=== PATIENT | male | born 1960 | race Caucasian/White ===

== ENCOUNTER 2023-03-31 09:26 | Outpatient (OUT) | payer OTHER, SELFPAY ==
[2023-03-31 10:10] LABS: Basophils Percent Auto 0.6 % (0.2-2.0); Eosinophils Absolute Auto 0.1 10^3/uL (0.0-0.7); Eosinophils Percent Auto 1.9 % (0.9-7.0); Hematocrit 48.6 % (42.0-54.0); Hemoglobin 16.8 g/dL (14.0-18.0); Immature Granulocytes Abs Auto 0.03 10^3/uL (0.00-0.03); Immature Granulocytes Pct Auto 0.5 % (0.0-0.5); Lymphocytes Absolute Auto 2.2 10^3/uL (1.2-3.8); Mean Corpuscular HGB Conc 34.6 g/dL (29.9-35.2); Mean Corpuscular Hemoglobin 30.5 pg (25.9-34.0); Mean Corpuscular Volume 88.2 fL (80.0-94.0); Monocytes Absolute Auto 0.5 10^3/uL (0.3-0.8); Monocytes Percent Auto 8.2 % (1.7-12.0); Neutrophils Absolute Auto 3.6 10^3/uL (1.4-6.5); Neutrophils Percent Auto 54.8 % (43.0-75.0); Platelet Count 225 10^3/uL (150-450); Red Blood Count 5.51 10^6/uL (4.70-6.10); Red Cell Distribution Width 12.6 % (11.0-15.0); White Blood Count 6.5 10^3/uL (4.0-11.0)
[2023-03-31 10:40] LABS: Estimated Average Glucose 166 mg/dL; Glycohemoglobin A1C 7.4 % (4.5-6.2)
[2023-03-31 10:43] LABS: Alanine Aminotransferase 108 U/L (16-63); Albumin Level 3.8 g/dL (3.4-5.0); Alkaline Phosphatase 89 U/L (46-116); Anion Gap 12.3; Aspartate Amino Transferase 57 U/L (15-37); BUN Creatinine Ratio 21.5; Bilirubin Total 0.5 mg/dL (0.2-1.0); Calcium 9.3 mg/dL (8.5-10.1); Carbon Dioxide 28.3 mmol/L (21.0-32.0); Chloride 103 mmol/L (98-107); Chol HDL Ratio 5.1; Cholesterol 188 mg/dL (<=200); Estimated GFR (African America >60 (>=60); Estimated GFR (Non-African Ame >60 (>=60); Globulin 3.8 g/dL; Glucose 178 mg/dL (74-106); HDL Cholesterol 37 mg/dL (40-60); Potassium 4.6 mmol/L (3.5-5.1); Sodium 139 mmol/L (136-145); Total Protein 7.6 g/dL (6.4-8.2); Triglycerides 251 mg/dL (<=150); VLDL CHOLESTEROL 50.2 mg/dL
[2023-03-31 11:04] LABS: Prostate Specific Antigen Scrn 3.05 ng/mL (<=4.00)
== END 2023-03-31 09:27 | disposition home or self-care (01) ==
LOC: LAB 09:32
PROVIDERS: PCP Nurse Practitioner Family; Visit Provider Nurse Practitioner Family
DX: Z00.00 Encounter for general adult medical examination without abnormal findings (principal)
CPT/HCPCS: 36415; 80053; 80061; 83036; 85025; G0103

== ENCOUNTER 2023-07-26 09:22 | Outpatient (OUT) | payer OTHER, SELFPAY ==
[2023-07-26 10:00] LABS: Estimated Average Glucose 143 mg/dL; Glycohemoglobin A1C 6.6 % (4.5-6.2)
== END 2023-07-26 09:23 | disposition home or self-care (01) ==
LOC: LAB 09:24
PROVIDERS: PCP Nurse Practitioner Family; Visit Provider Nurse Practitioner Family
DX: E11.69 Type 2 diabetes mellitus with other specified complication (principal)
CPT/HCPCS: 36415; 83036

== ENCOUNTER 2024-05-05 09:23 | Outpatient (OUT) | payer MEDICARE, OTHER, SELFPAY ==
[2024-05-05 10:06] LABS: Basophils Percent Auto 0.7 % (0.2-2.0); Eosinophils Absolute Auto 0.1 10^3/uL (0.0-0.7); Hemoglobin 15.9 g/dL (14.0-18.0); Immature Granulocytes Abs Auto 0.02 10^3/uL (0.00-0.03); Immature Granulocytes Pct Auto 0.3 % (0.0-0.5); Lymphocytes Percent Auto 33.3 % (20.5-60.0); Mean Corpuscular HGB Conc 34.6 g/dL (29.9-35.2); Mean Corpuscular Hemoglobin 30.8 pg (25.9-34.0); Mean Platelet Volume 10.3 fL (9.5-13.5); Monocytes Absolute Auto 0.5 10^3/uL (0.3-0.8); Monocytes Percent Auto 8.1 % (1.7-12.0); Neutrophils Absolute Auto 3.4 10^3/uL (1.4-6.5); Neutrophils Percent Auto 55.6 % (43.0-75.0); Platelet Count 199 10^3/uL (150-450); Red Blood Count 5.17 10^6/uL (4.70-6.10); Red Cell Distribution Width 12.1 % (11.0-15.0); White Blood Count 6.1 10^3/uL (4.0-11.0)
[2024-05-05 10:07] LABS: Estimated Average Glucose 189 mg/dL; Glycohemoglobin A1C 8.2 % (4.5-6.2)
[2024-05-05 10:33] LABS: Alanine Aminotransferase 130 U/L (16-63); Albumin Globulin Ratio 1.2; Albumin Level 3.9 g/dL (3.4-5.0); Alkaline Phosphatase 93 U/L (46-116); Anion Gap 14.3; Aspartate Amino Transferase 72 U/L (15-37); BUN Creatinine Ratio 15.2; Bilirubin Total 0.8 mg/dL (0.2-1.0); Calcium 9.2 mg/dL (8.5-10.1); Carbon Dioxide 27.8 mmol/L (21.0-32.0); Chloride 101 mmol/L (98-107); Chol HDL Ratio 5.4; Cholesterol 198 mg/dL (<=200); Estimated GFR (African America >60 (>=60); Estimated GFR (Non-African Ame >60 (>=60); Free T3 2.39 pg/mL (2.18-3.98); Globulin 3.2 g/dL; Glucose 214 mg/dL (74-106); HDL Cholesterol 37 mg/dL (40-60); Potassium 4.1 mmol/L (3.5-5.1); Sodium 139 mmol/L (136-145); Thyroid Stimulating Hormone 2.984 uIU/mL (0.358-3.740); Total Protein 7.1 g/dL (6.4-8.2); Triglycerides 338 mg/dL (<=150); VLDL CHOLESTEROL 67.6 mg/dL
[2024-05-05 10:36] LABS: Prostate Specific Antigen Scrn 2.53 ng/mL (<=4.00)
[2024-05-06 12:10] LABS: Insulin 20.7 uIU/mL (2.6-24.9)
== END 2024-05-05 09:24 | disposition home or self-care (01) ==
LOC: LAB 09:29
PROVIDERS: PCP Nurse Practitioner Family; Visit Provider Nurse Practitioner Family
DX: I10 Essential (primary) hypertension (principal)
CPT/HCPCS: 36415; 80053; 80061; 83036; 83525; 84436; 84443; 84481; 85025; G0103

== ENCOUNTER 2024-06-16 08:57 | Outpatient (OUT) | payer MEDICARE, OTHER, SELFPAY ==
[2024-06-16 09:59] LABS: Alanine Aminotransferase 163 U/L (16-63); Albumin Globulin Ratio 1.2; Albumin Level 3.8 g/dL (3.4-5.0); Alkaline Phosphatase 102 U/L (46-116); Anion Gap 10.2; Aspartate Amino Transferase 96 U/L (15-37); BUN Creatinine Ratio 16.2; Calcium 9.3 mg/dL (8.5-10.1); Carbon Dioxide 30.2 mmol/L (21.0-32.0); Chloride 102 mmol/L (98-107); Estimated GFR (African America >60 (>=60); Estimated GFR (Non-African Ame >60 (>=60); Globulin 3.2 g/dL; Glucose 213 mg/dL (74-106); Potassium 4.4 mmol/L (3.5-5.1); Sodium 138 mmol/L (136-145)
== END 2024-06-16 08:58 | disposition home or self-care (01) ==
PROVIDERS: PCP Nurse Practitioner Family; Visit Provider Nurse Practitioner Family
DX: R74.8 Abnormal levels of other serum enzymes (principal)
CPT/HCPCS: 36415; 80053

== ENCOUNTER 2024-06-30 08:34 | Outpatient (OUT) | payer MEDICARE, OTHER, SELFPAY ==
--- NOTE | 2024-06-30 08:38 | US_ITS ---
[facility] [place] [id number] Patient Name: TIFFANY BRENNAN MRN: [id number] date: 1960 Sex: M Assigned Patient Location: US Current Patient Location: US Accession/Order Number: [id number] Exam Date: 06/30/2024 08:45 Report Date: 06/30/2024 10:26 At the request of: CHRISTELLE MCPHERSON Procedure: US right upper quadrant EXAM: US right upper quadrant HISTORY: Elevated liver enzymes, R74.8 COMPARISON: None. TECHNIQUE: Grayscale, color and Doppler FINDINGS: The liver is normal in size, contour and echotexture. Diffuse increase in hepatic echotexture. The liver measures 19.8 cm in length. Hepatopedal flow in the main portal vein with velocity of 29 cm/s. The gallbladder is normal in size. The wall measures 1.8 mm per the common bile duct measures 2.2 mm. Negative sonographic Kapadia sign. 1 cm echogenic focus in the gallbladder neck, cholelithiasis The visualized pancreas is normal The right kidney is visualized, grossly measuring 12.5 x 6.3 x 7.3 cm. Area of anechoic echogenicity inseparable from the lower pole of the kidney measuring 13.5 x 9.1 x 10.5 cm US/US right upper quadrant IMPRESSION: Echogenic liver suggesting hepatic steatosis 13.5 cm cystic lesion extending from the lower pole of the right kidney. Consider follow-up CT exam with contrast for further evaluation Electronically authenticated by: DOROTHEA HOFF Date: 06/30/2024 10:26
== END 2024-06-30 08:35 | disposition home or self-care (01) ==
LOC: US 08:34
PROVIDERS: PCP Nurse Practitioner Family; Visit Provider Nurse Practitioner Family
DX: R74.8 Abnormal levels of other serum enzymes (principal); N28.1 Cyst of kidney, acquired
CPT/HCPCS: 76705

== ENCOUNTER 2024-07-16 08:41 | Outpatient (OUT) | payer MEDICARE, OTHER, SELFPAY ==
--- NOTE | 2024-07-16 08:44 | CT_ITS ---
[address] [address] Patient Name: TIFFANY BRENNAN MRN: [id number] date: 1960 Sex: M Assigned Patient Location: CT Current Patient Location: Accession/Order Number: [id number] Exam Date: 07/16/2024 09:50 Report Date: 07/19/2024 13:38 At the request of: CHRISTELLE MCPHERSON Procedure: CT abdomen pelvis w con EXAMINATION: CT abdomen pelvis w con HISTORY: Abnormal Findings On Diagnostic Imaging COMPARISON: 06/30/2024 ultrasound TECHNIQUE: CT images were created with IV contrast. Axial, Coronal, and Sagittal images. Dose reduction techniques were achieved by using automated exposure control and/or adjustment of mA and/or kV according to patient size and/or use of iterative reconstruction technique. FINDINGS: LUNG BASES: No visible pulmonary or pleural disease. LIVER: Diffuse hypoattenuation the liver consistent with hepatic steatosis BILIARY: Cholelithiasis without evidence of acute cholecystitis PANCREAS: No lesion, fluid collection, ductal dilatation, or atrophy. SPLEEN: No enlargement or focal lesion. ADRENALS: No mass or enlargement. KIDNEYS: Bilateral renal cortical nonenhancing hypodensities consistent with cysts the largest on the right kidney measures 12.9 cm in craniocaudal dimension with some mild peripheral hyperdensity possibly representing some elements of cortex. Calcification peripherally BOWEL/MESENTERY: No visible mass, obstruction, or bowel wall thickening. Normal appendix AORTA/VASCULAR: no aortic aneurysm. Mild calcific atherosclerosis RETROPERITONEUM: No mass or adenopathy. LYMPH NODES: No adenopathy. URINARY BLADDER: No visible focal wall thickening, lesion, or calculus. PELVIC ORGANS: Enlarged prostate measuring 6 cm in diameter ABDOMINAL WALL: No mass or hernia. BONES: No bony lesion or fracture. Curvature of the thoracolumbar spine with moderate spondylosis L5-S1 OTHER: Negative. CT/CT abdomen pelvis w con IMPRESSION: Bilateral renal cortical cysts the largest in the right measuring 12.9 cm with peripheral calcification Enlarged prostate gland Electronically authenticated by: DOROTHEA HOFF Date: 07/19/2024 13:38
== END 2024-07-16 08:42 | disposition home or self-care (01) ==
LOC: CT 08:41
PROVIDERS: PCP Nurse Practitioner Family; Visit Provider Nurse Practitioner Family
DX: R93.89 Abnormal findings on diagnostic imaging of other specified body structures (principal); N28.1 Cyst of kidney, acquired
CPT/HCPCS: 74177; Q9967

== ENCOUNTER 2024-08-19 08:25 | Outpatient (OUT) | payer MEDICARE, OTHER, SELFPAY ==
--- OUTSIDE RECORDS SUMMARY | 2024-08-19 08:31 | XMS_ITS | CCD ---
Author Organization [facility] CARE INFORMATION ASSOCIATE [facility] Care Team Providers Care Heart Nurse Name Role Phone Josh MILLER Attending Unavailable CHRISTELLE MCPHERSON Referring Unavailable Encounters Encounter Date Encounter Type Care Provider Facility Start: 09-17-2024 ambulatory Josh MILLER Facili ty:[facility] Start: 07-27-2024 ambulatory Josh MILLER Facility :[facility] Payers Date Payer Category Payer Medicare [id number] 2023 Unknown [id number] 1960 Unknown [id number] Summary Purpose Family History No Family History Records Found Advance Directives No Advanced Directives Records Found Additional Source Comments (unrecognized sect ion and content) No Status Records Found INFORMATION SOURCE (unrecogn ized section and content) DATE CREATED AUTHOR 08/13/2024 [facility] FOR RECORDS PERTAINING TO PATIENTS WHO ARE OR HAVE BEEN ENROLLED IN A CHEMICAL DEPENDENCY/SUBSTANCEABUSE PROGRAM, SOME INFORMATION MAY BE OMITTED. This clinical summary was aggregated from multiple sources. Caution should be exercised in using it in the provision of clinical care. This summary normalizes information from multiple sources, and as a consequence, information in this document may materially change the coding, format and clinical context of patient data. In addition, data may be omitted in some cases. CLINICAL DECISIONS SHOULD BE BASED ON THE PRIMARY CLINICAL RECORDS. [employer] provides no warranty or guarantee of the accuracy or completeness of information in this document.
[2024-08-20 07:12] LABS: HBsAg Screen Negative (Negative); HCV Ab Non Reactive (Non Reactive); Hep A Ab, IgM Negative (Negative); Hep B Core Ab, IgM Negative (Negative)
== END 2024-08-19 08:26 | disposition home or self-care (01) ==
LOC: LAB 08:27
PROVIDERS: PCP Nurse Practitioner Family; Visit Provider Nurse Practitioner Family
DX: R74.8 Abnormal levels of other serum enzymes (principal)
CPT/HCPCS: 36415; 80074

== ENCOUNTER 2025-05-17 08:18 | Outpatient (OUT) | payer MEDICARE, OTHER, SELFPAY ==
--- OUTSIDE RECORDS SUMMARY | 2025-04-06 11:24 | XMS_ITS ---
Author Organization The [facility] in [place] Address [address] [place] [address] Care Team Providers Care District Ranger Name Role Phone Marcela Wilkins Primary Care Provider REASON FOR VISIT Yearly Appt -LMTCB Encounters Encounter Location Date Provider Diagnosis [facility] [address] [facility] [place] [address] 04/06/2025 Marcela Wilkins Plan Of Treatment No Information Progress Notes * John BRENNAN LDOB:[birth year] (65 yo M)Acc No.[id number]:04/06/2025 Patient: John SHARMA Fabio :1960 A ge:65 Y S ex:Male Address:[facility] [address], [place] [address] * true * Date: Generated for Printi ng/Faxing/eTransmitting on: 0 05/17/2025 08:43 AM EDT
--- OUTSIDE RECORDS SUMMARY | 2025-04-12 06:00 | XMS_ITS ---
Author Organization [facility] in [place] Address [address] [place] [address] Care Team Providers Care Spindle Repairer Name Role Phone Franky Marcela Primary Care Provider Allergies No Known Allergies REASON FOR VISIT yearly wellness, patient has a sore/rash left inner ankle area Medications Medication SIG (Take, Route, Fr equency, Duration) Notes Start Date End Date Status Lisinopril 10 MG 1 tablet Orally Once a day for 90 days Active Mupirocin 2 % 1 application Trigonometry Teacher ally Twice a day for 5 days 04/12/2025 Active Aspir-Low 81 MG 1 tablet Orally Once a day Active Social History Tobacco Use: Social History Observation Description Date Details (start date - stop date) Never Smoker NA - NA Tobacco Use/Smoking Question Answer Notes Patient is a nonsmoker AUDIT-C (Standard) Question Answer Notes Did you have a drink containing alcohol in the p ast year? No Points 0 Interpretation Negative Vital Signs Weight 247 lbs 04/12/2025 Height 71 in 04/12/2025 Blood pressure systolic 140 mm Hg 04/12/20 25 Blood pressure diastolic 80 mm Hg 025 BMI 34.45 kg/m2 04/12/2025 Encounters Encounter Location Date Provider Diagnosis [facility] [address] [place] [address] 04/12/2025 Marcela Wilkins Skin lesion L98.9 an d Essential (primary) hypertension I10 Assessments Encounter Date Diagnosis (ICD Code) Assessment Notes Treatment Notes Treatment Clinical Notes Section Notes 04/12/2025 Skin lesion (ICD-10 - L98.9) close monitoring if not improving, fu 04/12/2025 Essential (primary) hypertension (ICD-10 - I10) cologuard ordered BP ok continue med Plan Of Treatment Medication Medication Name Sig Start Date Stop Date Notes Lisinopril 10 MG 1 tablet Orally Once a day for 90 days Mupirocin 2 % 1 application Trigonometry Teacher ally Twice a day for 5 days 04/12/2025 Treatment Notes Assessment Notes Skin lesion close monitoring if not improving, fu Essential (primary) hypertension cologuard ordered BP ok continue med Pending Test Test Name Order Date HEMOGLOBIN A1C (GLYCO) 04/12/2025 INSULIN, TOTAL 04/12/2025 LIPID PANEL (CHOL/TRIG/HDL/LDL) 04/12/20 25 URIC ACID 04/12/2025 THYROID PANEL (T4/TSH/FREE T3) PSA, SCREENING 04/12/2025 CMP (COMP MET FARRIS) w/eGFR CKD-EPI 2024 CBC WITH DIFF 04/12/2025 Next Appt Details Follow Up: 1 Year,prn, Reaso n: Progress Notes * John BRENNAN LDOB:[birth year] (65 yo M)Acc No.[id number]:04/12/2025 Progress Note Patient: John SHARMA Provider: Tracy Wilkins ([facility]), HIGHWAY TRAFFIC CONTROL TECHNICIAN :1960 A ge:65 Y S ex:Male Date:04/12/2025 Address:[facility] [address], [facility] Check In:09:46 AM ESTCheck O ut:10:16 AM EST Subjective: * Chief Complaints: * 1 . Yearly wellness. 2. Patient has a sore/rash left inner ankle area. * HPI: G eneral: see kidney dr? 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 D epression Screening: PHQ-2 (2015 Edition) L ittle interest or pleasure in doing things??Not at all F eeling down, depressed, or hopeless? N ot at all T otal Score 0 * ROS: G eneral/Constitutional: Fever d enies. H eadache d enies. W eight loss?denies. O phthalmologic: Discharge d enies. E ye Pain d enies. I tching and redness d enies. E NT: Nasal discharge d enies. N agata congestion d enies.?Sore throat d enies. C ardiovascular: Chest tightness/ heavy pressure d enies. R apid heart rate d enies. S welling of extremities d enies. C hest pain d enies. ? R espiratory: Productive cough d enies. C hest pain d enies. C ough d enies. S hortness of breath d enies. W heezing d enies. ? G astrointestinal: Abdominal pain d enies. C onstipation d enies. D ecreased appetite d enies. D iarrhea d enies. N ausea d enies. V omiting?denies. G enitourinary: Urinary incontinence d enies. P ainful urination d enies. M usculoskeletal: Back pain d enies. N priyanka pain d enies. M uscle aches d enies. S kin: Rash d enies. S kin lesion(s) l eft inner ankle, not itchy. * Active Problem List F41.9 Anxiety disorder, un specified Modified On:03/26/2023U Status:confirmed I10 Essential (primary) hypertension Modified On:10/14/2023/U Status:confirmed E11.69 Type 2 diabetes ying itus with other specified complication Modified On:07/08/2023U Status:confirmed E66.9 Obesity, unspecified Modified On:04/04/2023U Status:confirmed J32.9 Sinusitis Modified On:04/12/2024/U Status:confirmed R74.8 Elevated liver enzym es Modified On:05/10/2024U Status:confirmed R93.89 Abnormal findings on diagnostic imaging of other specified body structures Modified On:07/05/2024U Status:confirmed K76.0 Fatty liver Modified On:07/20/2024/U Status:confirmed N28.1 Renal cyst Modified On:07/20/2024/U Status:confirmed N40.0 Enlarged prostate Modified On:07/20/2024/U Status:confirmed * Medical History: M edical History Verified. * Surgical History: C ABG . * Family History: F ather: 71 yrs, substance abuse, heart attack, diagnosed with Unspecified heart disease, Unspecified essential hypertension. M other: 80 yrs, Alzheimers, diagnosed with Unspecified essential hypertension. B rother(s): , colorectal cancer, diagnosed with Other malignant neoplasm of unspecified site. S jeremiah(s): , brain cancer, diagnosed with Other malignant neoplasm of unspecified site. 1 brother(s) , 2 sister(s) . . * Social History: T obacco Use: T obacco Use/Smoking P atient is a n onsmoker D rug/Alcohol: A RHYS-C (Standard) D id you have a drink containing alcohol in the past year? N o P oints 0 I nterpretation N egative * Medications: T aking Aspir-Low 81 MG Tablet Delayed Release 1 tablet Orally Once a day , Taking Lisinopril 10 MG Tablet 1 tablet Orally Once a day , Medication List reviewed and reconciled with the patient * Allergies: N .K.D.A. Objective: * Vitals: W t:247lbs, Ht: 71 in, BP:140/80mm Hg, BMI:34.45Index, Ht-cm: 180.34 cm, Wt-k.04 kg. * Examination: G eneral Examinations: GENERAL APPEARANCE: a lert and oriented, i n no acute distress. EYES: c onjunctiva normal, sclera non-icteric. EARS: e xternal auditory canals are patent. Tympanic membranes are pearly gipson and mobile. NOSE: n ormal external appearance. LUNGS: c lear anteriorly and posteriorly. CARDIO: r egular rate and rhythm, S1, S2 normal, no edema.? ABDOMEN: s oft, nontender. MUSCULOSKELETAL: G ait and station normal. SKIN: w arm and dry. Assessment: * Assessment: 1. E ssential (primary) hypertension - I10 (Primary) 2 . S kin lesion - L98.9 Plan: * Treatment: 2. S kin lesion Start Mupirocin Ointment, 2 %, 1 application, Externally, Twice a day, 5 days, 1, Refills 0. ? Notes: close monitoring if not improving, fu * Preventive Medicine: Screenings/Counseling: F ALL RISK SCREENING Fall Risk Assessment: N o falls in the past year * Follow Up: 1 Year,prn * * Electronically signed by Sophie Wilkins , GIS ANALYST, ORDER PICKER/ASSEMBLER.HIGHWAY TRAFFIC CONTROL [id number] on 04/13/2025 at 10:44 AM EDT Sign off status: Completed Visit Status: C HK (Check Out) true * Provider: Tracy Wilkins ([facility]), HIGHWAY TRAFFIC CONTROL TECHNICIAN Date: 0 04/12/2025 Generated for Jeffy hall/Jaiden/eTmirlandeitting on: 0 05/17/2025 08:42 AM EDT History and Physical Notes * HPI (History of Present Illness) Category Sub-Category Detail Notes Category Not es General see kidney dr? 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 Tympanic membranes are pearly gipson and mobile NOSE: normal external appe arance THROAT: CARDIO: regular rate and rhy thm, S1, S2 normal, no edema LUNGS: clear anteriorly and posteriorly ABDOMEN: soft, nontender SKIN: warm and dry BACK: MUSCULOSKELETAL: Gait and station nor mal LYMPH NODES:
--- OUTSIDE RECORDS SUMMARY | 2025-05-02 05:13 | XMS_ITS ---
Author Organization The [facility] in [place] Address [address] [place] [address] Care Team Providers Care Food Service Coordinator Name Role Phone Marcela Wilkins Primary Care Provider [phone] REASON FOR VISIT Cologuard Encounters Encounter Location Date Provider Diagnosis [facility] [address] [place] [address] 05/02/2025 Marcela Wilkins Plan Of Treatment No Information Progress Notes * John BRENNAN LDOB:[birth year] (65 yo M)Acc No.[id number]:05/02/2025 Patient: John SHARMA Fabio :1960 A ge:65 Y S ex:Male Address:[facility] [address], [place] [address] * true * Date: Generated for Printi ng/Faxing/eTransmitting on: 0 05/17/2025 08:43 AM EDT
--- OUTSIDE RECORDS SUMMARY | 2025-05-17 08:30 | XMS_ITS | CCD ---
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 Helper Name Role Phone Josh MILLER Attending Unavailable MARCELA WILKINS Referring Unavailable Josh MILLER Attending Unavailable MARCELA WILKINS Primary Care Physician Allergies Allergy Classification Reported Allergen(s) Allergy Type Date of Onset Reaction(s) Facility (1 source) No Known Medication Allergies; Translations: [No Known Medication Allergies] Propensity to adverse reactions (disorder) [facility] Repository Medications Current Medications Medication Drug Class(es) Dates Sig (Normalized) Sig (Original) aspirin 81 mg delayed release oral tablet (1 source) Platelet Aggregation Inhibitor, Nonsteroidal Anti-inflammatory Drug Start: 09-17-2024 take 1 tablet by mouth once daily aspirin 81 mg Oral EC Tab 81 mg = 1 tab(s), Oral, Daily, Refills(s) 0 Start Date: 09/17/24 Status: Ordered lisinopril 10 mg oral tablet (1 source) Angiotensin Converting Enzyme Inhibitor Start: 09-17-2024 lisinopril 10 mg Tab 10 mg = 1 tab(s), Refills(s) 0 Start Date: 09/17/24 Status: Ordered Problems Problem Classification Problem Date Documented Da te Episodic/Chronic Anxiety disorders (1 source) Anxiety 09-15-2024 Chronic Diabetes mellitus without complication (1 source) Type 2 diabetes mellitus 09-15-2024 Chronic Essential hypertension (1 source) Essential hypertension 09-15-2024 Chronic Other diseases of kidney and ureters (1 source) Acquired renal cyst without neoplastic change; Translations: [Cyst of kidney, acquired] Onset: 09-17-2024 Episodic Other diseases of kidney and ureters (1 source) Cyst of kidney 09-17-2024 Episodic Other nutritional; endocrine; and metabolic disorders (1 source) Obesity 09-15-2024 Chronic Other screening for suspected conditions (not mental disorders or infectious disease) (1 source) Encounter for screening for malignant neoplasm of prostate; Translations: [Screening for malignant neoplasm done] Onset: 09-17-2024 Episodic Other upper respiratory infections (1 source) Sinusitis 09-15-2024 Chronic Unclassified (1 source) Patient encounter status 09-17-2024 Results Test Name Value Interpretation Reference Range Jose J ugalde Ambulatory Visit Summaryon 1 11-18-2023 Ambulatory Visit Summary Ambulatory Visit Summary TIFFANY BRENNAN :1960 Visit Date:09/17/2024 Ambulatory Visit Instructions Your Diagnosis Renal cyst Screening PSA (prostate specific antigen) Tests Performed CT Abdomen/Pelvis w/ + w/o Contrast -- Results Pending -- Please visit your patient portal for your results or contact your primary care physician. Your Care Team Attending Physician - Josh MILLER MD Primary Care Physician - MARCELA WILKINS CNP Referring Physician - MARCELA WILKINS CNP This Is Your Medications List Contact prescribing physician if questions or concerns aspirin (aspirin 81 mg Oral EC Tab) lisinopril (lisinopril 10 mg Tab) Procedures Performed CABG - Coronary artery bypass graft. Discharge Vitals Temperature (Temporal Artery) 37 ???C Heart Rate (Peripheral) 88 Respiratory Rate 16 Blood Pressure 136/87 Height 180 cm Height 71 in Weight 114.5 kg Weight 252.429 lb BMI 35.34 What to do next You Need to Schedule the Following Appointments Follow Up with ANGELA PULIDO, Josh James, URL When: Where: [address] [place] [address]- Medications What How Much When Instructions Unchanged aspirin (aspirin 81 mg Oral EC Tab) 1 Tablets By Mouth Every day Contact prescribing physician if questions or concerns Unchanged lisinopril (lisinopril 10 mg Tab) 1 Tablets Contact prescribing physician if questions or concerns Allergies No Known Medication Allergies Problems Ongoing - Any problem that you are currently receiving treatment for. Anxiety Essential hypertension Obesity Renal cyst Screening PSA (prostate specific antigen) Sinusitis Type 2 diabetes mellitus with other specified complication Patient Survey You may receive a survey via text or e-mail asking about your office visit. Please share your experience with us by completing your survey. We appreciate your feedback and thank you for choosing us for your care. Education Materials Prostate Cancer Screening Prostate cancer screening is testing that is done to check for the presence of prostate cancer in men. The prostate gland is a walnut-sized gland that is located below the bladder and in front of the rectum in males. The function of the prostate is to add fluid to semen during ejaculation. Prostate cancer is one of the most common types of cancer in men. Who should have prostate cancer screening? Screening recommendations vary based on age and other risk factors, as well as between the professional organizations who make the recommendations. In general, screening is recommended if: ??? You are age 50 to 70 and have an average risk for prostate cancer. You should talk with your health care provider about your need for screening and how often screening should be done. Because most prostate cancers are slow growing and will not cause , screening in this age group is generally reserved for men who have a 10- to 15-year life expectancy. ??? You are younger than age 50, and you have these risk factors: ? Having a father, brother, or uncle who has been diagnosed with prostate cancer. The risk is higher if your family member's cancer occurred at an early age or if you have multiple family members with prostate cancer at an early age. ? Being a male who is Black or is of Br[place] or sub-Saharan descent. In general, screening is not recommended if: ??? You are younger than age 40. ??? You are between the ages of 40 and 49 and you have no risk factors. ??? You are 70 years of age or older. At this age, the risks that screening can cause are greater than the benefits that it may provide. If you are at high risk for prostate cancer, your health care provider may recommend that you have screenings more often or that you start screening at a younger age. How is screening for prostate cancer done? The recommended prostate cancer screening test is a blood test called the prostate-specific antigen (PSA) test. PSA is a protein that is made in the prostate. As you age, your prostate naturally produces more PSA. Abnormally high PSA levels may be caused by: ??? Prostate cancer. ??? An enlarged prostate that is not caused by cancer (benign prostatic hyperplasia, or BPH). This condition is very common in older men. ??? A prostate gland infection (prostatitis) or urinary tract infection. ??? Certain medicines such as male hormones (like testosterone) or other medicines that raise testosterone levels. A rectal exam may be done as part of prostate cancer screening to help provide information about the size of your prostate gland. When a rectal exam is performed, it should be done after the PSA level is drawn to avoid any effect on the results. Depending on the PSA results, you may need more tests, such as: ??? A physical exam to check the size of your prostate gland, if not done as part of screening. ??? (more content not included)... [facility] Reminderson 09-17-2024 Reminders Reminders From: Flakita Tim To: JOAN Miller; Sent: 09/17/2024 11:16:29 EST Show up: 04/29/2025 11:16:00 EDT Subject: Ct scan/PSA Due Date/Time: 05/23/2025 11:16:00 EDT Reminder/Recall Patient needs sched for Ct scan ABD/Pelvis w and w/o contrast, creatinine prior and PSA level prior to 07/01/25 appt [facility] Vital Signs Date Time Vital Sign Value Performing Clinician Faci littanner 09-17-2024 09:52-0500 Blood Pressure Location Josh MILLER [facility] 09-17-2024 09:52-0500 Body temperature 98.6 [degF] Josh MILLER [facility] 09-17-2024 09:52-0500 Diastolic blood pressure 87 mm[Hg] Josh MILLER [facility] 09-17-2024 09:52-0500 Heart rate 88 /min Josh MILLER [facility] 09-17-2024 09:52-0500 Respiratory rate 16 /min Josh MILLER [facility] 09-17-2024 09:52-0500 Systolic blood pressure 136 mm[Hg] Josh MILLER [facility] Encounters Encounter Date Encounter Type Care Provider Facility Start: 07-01-2025 ambulatory Josh MILLER Facili ty:[facility] Start: 09-17-2024 End: 09-17-2024 ambulatory MARCELA WILKINS Facility:[facility] Start: 09-17-2024 End: 09-17-2024 Patient encounter procedure Josh James ANGELA [facility] Start: 07-27-2024 ambulatory Josh MILLER Facility : [place] Procedures Date Procedure Procedure Detail Performing Clinician Coronary artery bypass graft Josh ANGELA Payers Date Payer Category Payer Medicare [id number] 2023 Unknown [id number] 1960 Unknown [id number] 1960 Unknown [id number] Social History Date Type Detail Facility Start: 09-17-2024 Tobacco smoking status Never s moked tobacco (finding) [facility] Tobacco smoking status Never [facility] Sex Assigned At Male [facility] Functional Status Date Assessment Result Facility 09-17-2024 Functional Status N/A [facility] Hospital Discharge instructions 09-17-2024 Note Date & Type Note Facility 09-17-2024 Hospital Discharge instructions Patient Education 09/17/2024 11:06:22 Prostate Cancer Screening Prostate Cancer Screening Prostate cancer screening is testing that is done to check for the presence of prostate cancer in men. The prostate gland is a walnut-sized gland that is located below the bladder and in front of the rectum in males. The function of the prostate is to add fluid to semen during ejaculation. Prostate cancer is one of the most common types of cancer in men. Who should have prostate cancer screening? Screening recommendations vary based on age and other risk factors, as well as between the professional organizations who make the recommendations. In general, screening is recommended if: You are age 50 to 70 and have an average risk for prostate cancer. You should talk with your health care provider about your need for screening and how often screening should be done. Because most prostate cancers are slow growing and will not cause , screening in this age group is generally reserved for men who have a 10- to 15-year life expectancy. You are younger than age 50, and you have these risk factors: ?Having a father, brother, or uncle who has been diagnosed with prostate cancer. The risk is higher if your family member's cancer occurred at an early age or if you have multiple family members with prostate cancer at an early age. ?Being a male who is Black or is of Brant or sub-Saharan descent. In general, screening is not recommended if: You are younger than age 40. You are between the ages of 40 and 49 and you have no risk factors. You are 70 years of age or older. At this age, the risks that screening can cause are greater than the benefits that it may provide. If you are at high risk for prostate cancer, your health care provider may recommend that you have screenings more often or that you start screening at a younger age. How is screening for prostate cancer done? The recommended prostate cancer screening test is a blood test called the prostate-specific antigen (PSA) test. PSA is a protein that is made in the prostate. As you age, your prostate naturally produces more PSA. Abnormally high PSA levels may be caused by: Prostate cancer. An enlarged prostate that is not caused by cancer (benign prostatic hyperplasia, or BPH). This condition is very common in older men. A prostate gland infection (prostatitis) or urinary tract infection. Certain medicines such as male hormones (like testosterone) or other medicines that raise testosterone levels. A rectal exam may be done as part of prostate cancer screening to help provide information about the size of your prostate gland. When a rectal exam is performed, it should be done after the PSA level is drawn to avoid any effect on the results. Depending on the PSA results, you may need more tests, such as: A physical exam to check the size of your prostate gland, if not done as part of screening. Blood and imaging tests. A procedure to remove tissue samples from your prostate gland for testing (biopsy). This is the only way to know for certain if you have prostate cancer. What are the benefits of prostate cancer screening? Screening can help to identify cancer at an early stage, before symptoms start and when the cancer can be treated more easily. There is a small chance that screening may lower your risk of dying from prostate cancer. The chance is small because prostate cancer is a slow-growing cancer, and most men with prostate cancer from a different cause. What are the risks of prostate cancer screening? The main risk of prostate cancer screening is diagnosing and treating prostate cancer that would never have caused any symptoms or problems. This is called overdiagnosisand overtreatment. PSA screening cannot tell you if your PSA is high due to cancer or a different cause. A prostate biopsy is the only procedure to diagnose prostate cancer. Even the results of a biopsy may not tell you if your cancer needs to be treated. Slow-growing prostate cancer may not need any treatment other than monitoring, so diagnosing and treating it may cause unnecessary stress or other side effects. Questions to ask your health care provider When should I start prostate cancer screening? What is my risk for prostate cancer? How often do I need screening? What type of screening tests do I need? How do I get my test results? What do my results mean? Do I need treatment? Where to find more information The [place] [employer]: www.cancer.org [place] [employer]: www.auanet.org Contact a health care provider if: You have difficulty urinating. You have pain when you urinate or ejaculate. You have blood in your urine or semen. You have pain in your back or in the area of your prostate. Summary Prostate cancer is a common type of cancer in men. The prostate gland is located below the bladder and in front of the rectum. This gland adds fluid to semen during ejaculation. Prostate cancer screening may identify cancer at an early stage, when the cancer can be treated more easily and is less likely to have spread to other areas of the body. The prostate-specific antigen (PSA) test is the recommended screening test for prostate cancer, but it has associated risks. Discuss the risks and benefits of prostate cancer screening with your health care provider. If you are age 70 or older, the risks that screening can cause are greater than the benefits that it may provide. This information is not intended to replace advice given to you by your health care provider. Make sure you discuss any questions you have with your health care provider. Document Revised: 03/11/2022 Document Reviewed: 03/11/2022 [employer] Patient Education 2023 [employer]. Follow Up Care 08/11/2024 11:43:46 With:ANGELA PULIDO, Josh James, URL Address: [address] [place] [id number]- When: Unknown [facility] Clinical Note 09-17-2024 Note Date & Type Note Facility 09-17-2024 Note Urology Office/Clini c Note Chief Complaint referral for renal cyst HPI Staff New pt referred by Marcela Wilkins CNP for renal cyst. Never seen in our office before (verified on [employer]). RUQ US 06/30/24 [facility] - 13.5 cm cystic lesion extending from the RLP of kidney. CT AP w con 07/16/24 [facility] - Bilateral renal cortical cysts the largest in the right measuring 12.9 cm with peripheral calcification. CMP 05/05/24 - BUN 16, CR 1.05, GFR >60 Dysuria: denies Incomplete bladder emptying: denies Hematuria: denies Frequency: denies Urgency: denies Nocturia: 1x Stream: no straining or intermittency, denies weak stream Leaking: denies Post void dripping: denies Wearing pads/ Depends: denies Urge incontinence: denies Stress incontinence: denies Incontinence without Sensory Awareness: denies Abdominal pain: denies Flank pain: denies Sexual complaints: denies History of Present Illness Tests reviewed: reviewed UA, US, CT, PSA, external records. I have reviewed the previous health record information and history for this patient from external provider I have reviewed and verified the staff HPI to be accurate for this encounter. There have been no associated fever, chills, flank pain, or blood in the urine. Denies any urinary infections since last encounter. Review of Systems PHQ Score Initial Depression Screen Score: 0 SCORE ROS - Provider Constitutional: denies weight loss, denies hot flashes. Eyes: denies eye problems. Gastrointestinal: denies nausea, denies vomiting. Cardiovascular: denies chest pain or angina. Integumentary: no dryness Musculoskeletal: denies musculoskeletal symptoms. ENMT: denies otolaryngeal symptoms. Respiratory: no shortness of breath. Heme/Lymph: denies easy bleeding tendency, denies easy bruising tendency. Psychiatric: no confusion, no anxiety. Genitourinary: See HPI. Physical Exam Vitals & Measurements T: 37 ???C(Temporal Artery) HR: 88(Peripheral) RR: 16 BP: 136/87 HT: 71 in HT: 180 cm WT: 114.5 kg WT: 252.429 lb BMI: 35.34 General Appearance: alert, no distress, well nourished, well developed male. Head: normocephalic . Eyes: normal orbit and globe. ENMT: normal examination of external ears. Psychiatric: cooperative, affect appropriate for age, normal judgement, euthymic mood. Assessment/Plan 64 yo male referred by Marcela Wilkins CNP for renal cyst. Pt accompanied by today. Portions of this record may have been created with voice recognition artificial intelligence software, specifically [employer], [employer] and or [employer]. Substitutions may have occurred due to the inherent limitations of voice recognition and artificial intelligence software. 1. Renal cyst (N28.1: Cyst of kidney, acquired) CMP 05/05/24 - Cr 1.05, eGFR >60 Right upper quadrant US 06/30/24 [facility] - 13.5 cm cystic lesion extending from the RLP of kidney. CT AP w con 07/19/24 [facility] - bilateral renal cortical nonenhancing hypodensities consistent with cysts, the largest on the right measures 12.9 cm in craniocaudal dimension with some mild peripheral hyperdensity possibly representing some elements of cortex. Calcification peripherally. Pt reports he had imaging done to elevated liver enzymes. Asymptomatic. Explained to pt the definition of a cyst. Discussed with pt how cysts can turn into cancer. Explained to pt that his cysts are not simple and they are mildly complex due to calcifications. Size of cyst is quite large and could start to push on other organs if it would continue to grow. If pt would become symptomatic of the cyst, we could consider needle aspiration. Continued surveillance is warranted. -CT AP w/wo con in 10 mos -Monitor for flank pain 2. Screening PSA (prostate specific antigen) (Z12.5: Encounter for screening for malignant neoplasm of prostate) PSA 05/05/24 - 2.53 Explained to pt that his PSA is on the higher end of normal for his age. Recommend repeating this. Only PSA found on [facility]. CT AP w con 07/19/24 [facility] - Enlarged prostate measuring 6 cm in diameter. UA today negative for infection or blood. IPSS 1. Not taking any BPH meds. -PSA in 10 mos Follow-up With When Contact Information ANGELA PULIDO, Josh James, URL [address] [id number] Additional Instructions: 10 mos w/ CT & PSA Patient Education Prostate Cancer Screening I, Zora North, personally scribed for Dr. Miller on 09/17/2024 11:10:34. . Documentation recorded by the scribeZora, accurately reflects the services(s) I performed and decisions made by me. Authenticated by Dr. Miller on 09/17/2024 11:13:18. Problem List/Past Medical History Ongoing Anxiety Essential hypertension Obesity Renal cyst Screening PSA (prostate specific antigen) Sinusitis Type 2 diabetes mellitus with other specified complication Historical No qualifying data (more content not included)... [facility] Comment on above: Result Comment: Elec tronically Signed By: Josh MILLER MD\.br\Date and Time Signed: 09/17/24 11:13 EST\.br\Electronically Co-Signed By: Zora North\.br\Date and Time Co-Signed: 09/17/24 11:10 EST Clinical Note 09-17-2024 Note Date & Type Note Facility 09-17-2024 Note Patient Education Oncology Prostate Cancer Screening Prostate cancer screening is testing that is done to check for the presence of prostate cancer in men. The prostate gland is a walnut-sized gland that is located below the bladder and in front of the rectum in males. The function of the prostate is to add fluid to semen during ejaculation. Prostate cancer is one of the most common types of cancer in men. Who should have prostate cancer screening? Screening recommendations vary based on age and other risk factors, as well as between the professional organizations who make the recommendations. In general, screening is recommended if: ??? You are age 50 to 70 and have an average risk for prostate cancer. You should talk with your health care provider about your need for screening and how often screening should be done. Because most prostate cancers are slow growing and will not cause , screening in this age group is generally reserved for men who have a 10- to 15-year life expectancy. ??? You are younger than age 50, and you have these risk factors: ? Having a father, brother, or uncle who has been diagnosed with prostate cancer. The risk is higher if your family member's cancer occurred at an early age or if you have multiple family members with prostate cancer at an early age. ? Being a male who is Black or is of Brant or sub-Saharan descent. In general, screening is not recommended if: ??? You are younger than age 40. ??? You are between the ages of 40 and 49 and you have no risk factors. ??? You are 70 years of age or older. At this age, the risks that screening can cause are greater than the benefits that it may provide. If you are at high risk for prostate cancer, your health care provider may recommend that you have screenings more often or that you start screening at a younger age. How is screening for prostate cancer done? The recommended prostate cancer screening test is a blood test called the prostate-specific antigen (PSA) test. PSA is a protein that is made in the prostate. As you age, your prostate naturally produces more PSA. Abnormally high PSA levels may be caused by: ??? Prostate cancer. ??? An enlarged prostate that is not caused by cancer (benign prostatic hyperplasia, or BPH). This condition is very common in older men. ??? A prostate gland infection (prostatitis) or urinary tract infection. ??? Certain medicines such as male hormones (like testosterone) or other medicines that raise testosterone levels. A rectal exam may be done as part of prostate cancer screening to help provide information about the size of your prostate gland. When a rectal exam is performed, it should be done after the PSA level is drawn to avoid any effect on the results. Depending on the PSA results, you may need more tests, such as: ??? A physical exam to check the size of your prostate gland, if not done as part of screening. ??? Blood and imaging tests. ??? A procedure to remove tissue samples from your prostate gland for testing (biopsy). This is the only way to know for certain if you have prostate cancer. What are the benefits of prostate cancer screening? Screening can help to identify cancer at an early stage, before symptoms start and when the cancer can be treated more easily. ??? There is a small chance that screening may lower your risk of dying from prostate cancer. The chance is small because prostate cancer is a slow-growing cancer, and most men with prostate cancer from a different cause. What are the risks of prostate cancer screening? The main risk of prostate cancer screening is diagnosing and treating prostate cancer that would never have caused any symptoms or problems. This is called overdiagnosisand overtreatment. PSA screening cannot tell you if your PSA is high due to cancer or a different cause. A prostate biopsy is the only procedure to diagnose prostate cancer. Even the results of a biopsy may not tell you if your cancer needs to be treated. Slow-growing prostate cancer may not need any treatment other than monitoring, so diagnosing and treating it may cause unnecessary stress or other side effects. Questions to ask your health care provider ??? When should I start prostate cancer screening? What is my risk for prostate cancer? How often do I need screening? What type of screening tests do I need? How do I get my test results? What do my results mean? Do I need treatment? Where to find more information ??? The [place] [employer]: www.cancer.org ??? [place] U[employer] Association: www.auanet.org Contact a health care provider if: ??? You have difficulty urinating. ??? You have pain when you urinate or ejaculate. ??? You have blood in your urine or semen. ??? You have pain in your back or in the area of your prostate. Summary ??? Prostate cancer is a common type of cancer in men. The prostate gland (more content not included)... [facility] Evaluation + Plan note Note Date & Type Note Facility Evaluation + Plan note Future Appointments Appointment Date:07/01/2025 09:30:00 AM Scheduled Provider:Josh MILLER MD Location:[facility] Appointment Type:URO Office Visit Diagnostic Tests PendingPSA Total 05/30/25 [facility] Hospital course Narrative Note Date & Type Note Facility Hospital course Narrative No data available for this section [facility] Progress note Note Date & Type Note Facility Progress note No data available for this section [facility] Summary Purpose Family History No Family History Records Found No data available for this section Advance Directives No Advanced Directives Records Found Additional Source Comments (unrecognized sect ion and content) No Status Records Found INFORMATION SOURCE (unrecogn ized section and content) DATE CREATED AUTHOR 09/18/2024 [facility] Patient Care team informatio n (unrecognized section and content) Personnel Name: MARCELA WILKINS CNP Address: Address: [facility] [address] FOR RECORDS PERTAINING TO PATIENTS WHO ARE [...] BE BASED ON THE PRIMARY CLINICAL RECORDS. [facility]. provides no warranty or guarantee of the accuracy or completeness of information in this document.
--- OUTSIDE RECORDS SUMMARY | 2025-05-17 08:43 | XMS_ITS | Clinical Summary ---
Author Organization [facility] Address [address], [address] [place] [address] Care Team Providers Care Mill Worker Name Role Phone Unavailable Primary Care Provider Unavailabl e Social History Tobacco Use Types Packs/Day Years Used Date Smoking Tobacco: Never Assessed Sex and Gender Information Value Date Recorded Sex Assigned at Not on file Legal Sex Male 4:01 PM EDT Gender Identity Not on file Sexual Orientation Not on file Plan of Treatment Not on file Insurance [employer]
[2025-05-17 08:56] LABS: Hematocrit 44.7 % (42.0-54.0); Hemoglobin 15.9 g/dL (14.0-18.0); Immature Granulocytes Abs Auto 0.03 10^3/uL (0.00-0.03); Immature Granulocytes Pct Auto 0.5 % (0.0-0.5); Lymphocytes Absolute Auto 1.9 10^3/uL (1.2-3.8); Mean Corpuscular HGB Conc 35.6 g/dL (29.9-35.2); Mean Corpuscular Hemoglobin 31.3 pg (25.9-34.0); Mean Corpuscular Volume 88.0 fL (80.0-94.0); Platelet Count 227 10^3/uL (150-450); Red Blood Count 5.08 10^6/uL (4.70-6.10); White Blood Count 6.1 10^3/uL (4.0-11.0)
[2025-05-17 09:40] LABS: Alanine Aminotransferase 77 U/L (16-63); Albumin Globulin Ratio 1.1; Albumin Level 3.8 g/dL (3.4-5.0); Alkaline Phosphatase 84 U/L (46-116); Anion Gap 11.1; Aspartate Amino Transferase 45 U/L (15-37); Blood Urea Nitrogen 16.0 mg/dL (7.0-18.0); Calcium 9.0 mg/dL (8.5-10.1); Carbon Dioxide 29.2 mmol/L (21.0-32.0); Chloride 103 mmol/L (98-107); Cholesterol 186 mg/dL (<=200); Estimated GFR (African America >60 (>=60 mL/min/1.73m^2); Estimated GFR (Non-African Ame >60 (>=60 mL/min/1.73m^2); Free T3 2.28 pg/mL (2.18-3.98); Globulin 3.4 g/dL; Glucose 168 mg/dL (74-106); HDL Cholesterol 37 mg/dL (40-60); Potassium 4.3 mmol/L (3.5-5.1); Sodium 139 mmol/L (136-145); Thyroid Stimulating Hormone 3.431 uIU/mL (0.358-3.740); Total Protein 7.2 g/dL (6.4-8.2); Triglycerides 259 mg/dL (<=150); Uric Acid 5.1 mg/dL (3.5-7.2); VLDL CHOLESTEROL 51.8 mg/dL
== END 2025-05-17 08:19 | disposition home or self-care (01) ==
LOC: LAB 08:21
PROVIDERS: PCP Nurse Practitioner Family; Visit Provider Nurse Practitioner Family
DX: E78.5 Hyperlipidemia, unspecified (principal); I10 Essential (primary) hypertension; R73.09 Other abnormal glucose; M25.50 Pain in unspecified joint; E03.9 Hypothyroidism, unspecified; Z79.899 Other long term (current) drug therapy; Z12.5 Encounter for screening for malignant neoplasm of prostate; D64.9 Anemia, unspecified
CPT/HCPCS: 36415; 80053; 80061; 83036; 83525; 84436; 84443; 84481; 84550; 85025; G0103

== ENCOUNTER 2025-07-25 08:51 | Outpatient (OUT) | payer MEDICARE, OTHER, SELFPAY ==
--- OUTSIDE RECORDS SUMMARY | 2025-07-25 08:53 | XMS_ITS | Clinical Summary ---
Author Organization [facility] Address [address], [address] [place] [address] Care Team Providers Care Conference Manager Name Role Phone Unavailable Primary Care Provider Unavailabl e Social History Tobacco UseTypesPacks/DayYears UsedDateSmoking Tobacco: Never AssessedSex and Gender InformationValueDate RecordedSex Assigned at BirthNot on fileLegal Sex Male02/06/2017 4:01 PM EDTGender IdentityNot on fileSexual OrientationNot on file Plan of Treatment Not on file Insurance
--- OUTSIDE RECORDS SUMMARY | 2025-07-25 09:06 | XMS_ITS | CCD ---
Author Organization [facility] Informat ion Partnership [facility] Care Team Providers Care Slab Worker Name Role Phone MARCELA WILKINS Primary Care Physician Josh MILLER Attending Unavailable Josh MILLER Attending Unavailable Josh MILLER Attending Unavailable MARCELA WILKINS Referring Unavailable Allergies Allergy ClassificationReported Allergen(s)Allergy TypeDate of OnsetReaction(s) Facility (1 source)No Known Medication Allergies; Translations: [No Known Medication Allergies]Propensity to adverse reactions (disorder)[facility] Repository Medications Current Medications MedicationDrug Class(es)DatesSig (Normalized)Sig (Original)aspirin 81 mg delayed release oral tablet (1 source)Platelet Aggregation Inhibitor, Nonsteroidal Anti-inflammatory Drug Start: 03-11-0422gqch 1 tablet by mouth once dailyaspirin 81 mg Oral EC Tab 81 mg = 1 tab(s), Oral, Daily, Refills(s) 0 Start Date: 09/17/24 Status: Ordered lisinopril 10 mg oral tablet (1 source)Angiotensin Converting Enzyme InhibitorStart: 45-67-0794jobwxrkphd 10 mg Tab 10 mg = 1 tab(s), Refills(s) 0 Start Date: 09/17/24 Status: Ordered Problems Problem ClassificationProblemDateDocumented DateEpisodic/ChronicAnxiety disorders (1 source)Bxcrkrc61-28-8855FngoztmImytxbyn mellitus without complication (1 source)Type 2 diabetes qbumwssf69-18-2053LlqaospRtuvxaeep hypertension (1 source)Essential jrsucbkkughs80-78-5708AyciocrAmfls diseases of kidney and ureters (1 source)Acquired renal cyst without neoplastic change; Translations: [Cyst of kidney, acquired]Onset: 01-64-1261IsqsgwftJcayk diseases of kidney and ureters (1 source)Cyst of -77-6841IeivzsixWoigb nutritional; endocrine; and metabolic disorders (1 source)Zruosyn41-31-9153MffgikeJypix screening for suspected conditions (not mental disorders or infectious disease) (1 source)Encounter for screening for malignant neoplasm of prostate; Translations: [Screening for malignant neoplasm done]Onset: 73-13-7652Grgseknm Other upper respiratory infections (1 source)Maumndony50-04-5122YdaxsyeFambnxzkohey (1 source)Patient encounter -39-8926 Results Test NameValueInterpretationReference RangeFacilityReminderson 07-22-2025 RemindersReminders From: Flakita Tim To: JOAN Miller; Sent: 09/17/2024 11:16:29 EST Show up: 04/29/2025 11:16:00 EDT Subject: Ct scan/PSA Due Date/Time: 05/23/2025 11:16:00 EDT Reminder/Recall Patient needs sched for Ct scan ABD/Pelvis w and w/o contrast, creatinine prior and PSA level priorto 07/01/25 appt Left vm for pt asking for a return call to let us know where he would like his testing done. I did fax all orders and accompanying paperwork to [facility] after seeing that last imaging and labs weredone there. Spoke with [facility] scheduling and they stated they called the Pt 06/15 and left a vm. He did not return their call to schedule. I have reached out to him on 2 occasions to get him scheduled with no return call from him either. Cert/reg mail letters sent to pt. LG From: Bessie Arvizu (JOAN Miller) To: Flakita Tim; Sent: 07/22/2025 13:45:59 EDT Show up: 07/22/2025 13:45:00 EDT Subject: RE: Ct scan/PSA Beatris LOKESH called confused as to why she recieved a certified letter. The appt on 07/01/25 was rescheduled to 09/05/25. She said that the CT is scheduled at [facility] on friday. She wanted for Dr. Ruano Medical Billing Specialist to knowNSelect [facility] ColumbusPatient Letter FTMCon [phone] Letter FTPatient Letter FT July 18, 2025 JOHN BECKMANVALERY [address] [place] [address] : 1960 Dear John Ashley, I am corresponding to you by certified mail because you have a medical condition, complicated kidney cyst which requires follow up. It was recommended that you follow up with me in June 2025, but you have not responded to the phone calls or letters sent. The [facility] has also been trying to reach you concerning scheduling a repeat Ct scan. Please contact my office within 2 weeks and we will reschedule your appointment so I can closely monitor your condition. I cannot be responsible for your urologic care if you do not follow up as recommended. Sincerely, Josh Miller M.D., FACS [facility] , option #3NoWVUMedicine Harrison Community HospitalProvider Letteron [phone] LetterProvider Letter June 10, 2025 JOHN BRENNAN [address] [place] [address] : 1960 Dear John, We have been trying to reach you with no success. You have an appointment with Dr. Josh Miller on June which will need to be rescheduled since he will be out of the office that day. Please contact the office at the number listed below to get this appointment rescheduled at your earliest convenience. Thank you for your prompt attention to this matter. Sincerely, [facility] [address] [address] NjctigQcfpxvOhioHealthAmbulatory Visit Summaryon 25-21-1156Dustqjuwex Visit SummaryAmbulatory Visit Summary ASHLEY JOHN :1960 Visit Date:09/17/2024 Ambulatory Visit Instructions Your [...] ANGELA PULIDO, Josh James, URL When: Where: [address] [place] [address]- Medications What How Much When Instructions Unchanged aspirin (aspirin 81 mg Oral EC Tab) 1 Tablets By Mouth Every day Contact prescribing physician if questions or concerns Unchanged lisinopril (lisinopril 10 mg Tab) 1 Tablets Contact prescribing physician if questions orconcerns Allergies No Known Medication Allergies Problems Ongoing [...] below the bladder and in front of therectum in males. The function of the prostate is to add fluid to semen during ejaculation. Prostatecancer is one of the most common types [...] prostate cancer. You should talk with your healthcare provider about your need for screening and [...] is a blood test called the prostate-specific antigen(PSA) test. PSA is a protein that is [...] part of screening. ??? (more content not included)...[facility] Vital Signs Date TimeVital SignValuePerforming EjodlapvxZmnodlxd13-03-1745 09:52-0500Blood Pressure LocationPatrick [facility]12-20-2024 09:52-0500Body xikvfqcuxzc44.6 [degF]Josh MILLER [facility]12-20-2024 09:52-0500Diastolic blood gqqmmokl39 mm[Hg]Josh ANGELA [facility]12-20-2024 09:52-0500Heart rate88 /minJosh MILLER [facility]12-20-2024 09:52-0500Respiratory rate16 /minJosh MILLER [facility]12-20-2024 09:52-0500Systolic blood vnwalpod611 mm[Hg]Josh MILLER [facility] Encounters Encounter DateEncounter TypeCare ProviderFacilityStart: 30-12-7118mfcexdawjv Josh MILLERFacility:EU [facility] CenterueStart: 63-93-2505cvelufpgooCvksxiv R WATERS Facility:EU [place]: 09-17-2024 End: 08-18-6645khhqsmyqikLxdtrkk R WATERSFacility:EU UniontownevueStart: 09-17-2024 End: 24-13-5407Zrwywqb encounter procedurePaliza MILLER [facility] start: 21-27-1356nrehrishyfLrmaene WATERSFacility:EU [place] Procedures DateProcedureProcedure DetailPerforming ClinicianCoronary artery bypass graft Josh MILLER Payers DatePayer CategoryPayerPolicy [id number] 2024Unknown [id number] [id number] [id number] 2..[id number] Social History DateTypeDetailFacilityStart: 88-12-7319Yjazxtz smoking statusNever smoked tobacco (finding)[facility] Tobacco smoking statusNeverExec[facility] of [facility] Centerex Assigned At BirthMalTr[facility] System Functional Status CtijUyaifdlhjmZlyqqwXccdaaxn19-81-8633Lztmrhjvjm StatusN/AExec[facility] Hospital Discharge instructions 09-17-2024 Note Date & YaqyVmmlIglyrjlz20-44-6704 Hospital Discharge instructions Patient Education 09/17/2024 11:06:22 Prostate Cancer Screening Prostate Cancer Screening Prostate cancer screening is testing that is done to check for the presence of prostate cancer in men. The prostate gland is a walnut-sized gland that is located below the bladder and in front of therectum in males. The function of the prostate is to add fluid to semen during ejaculation. Prostatecancer is one of the most common types of cancer in men. Who should have prostate cancer screening? Screening recommendations vary based on age and other risk factors, as well as between the professional organizations who make the recommendations. In general, screening is recommended if: You are age 50 to 70 and have an average risk for prostate cancer. You should talk with your healthcare provider about your need for screening and [...] diagnosed with prostate cancer. The risk is higherif your family member's cancer occurred at an early age or if you have multiple family members withprostate cancer at an early age. ?Being a [...] is a blood test called the prostate-specific antigen(PSA) test. PSA is a protein that is [...] treatment? Where to find more information The [place] Cancer Society: www.cancer.org [place] Urological Association: www.auanet.org Contact a health care [...] the recommended screening test for prostate cancer, butit has associated risks. Discuss the risks and [...] provider. Document Revised: 03/11/2022 Document Reviewed: 03/11/2022 [employer] Patient Education 2023 [employer]TV. Follow Up Care 08/11/2024 11:43:46 With:ANGELA PULIDO, Josh James, URL Address: [address] [place] [address]- When: Unknown [facility] Clinical Note 09-17-2024 Note Date & TyodHfxyEvlebvtm13-09-2937 NoteUrology Office/Clinic Note Chief Complaint referral for renal cyst [...] with voice recognition artificial intelligence software, specifically [employer], [employer] and or [employer]. Substitutions may have occurred due to the [...] antigen) (Z12.5: Encounter for screening for malignant neoplasmof prostate) PSA 05/05/24 - 2.53 Explained to [...] Contact Information ANGELA PULIDO, Josh James, URL [address] [place] [address]- Additional Instructions: 10 mos w/ CT & PSA Patient Education Prostate Cancer Screening I, Zora North, personally scribed for Dr. Miller on 09/17/2024 11:10:34. . Documentation recorded by the Zora garcia, accurately reflects the services(s) I performed and decisions made by me. Authenticated by Dr. Miller on 09/17/2024 11:13:18. Problem List/Past Medical History Ongoing Anxiety Essential hypertension Obesity Renal cyst Screening PSA (prostate specific antigen) Sinusitis Type 2 diabetes mellitus with other specified complication Historical No qualifying data (more content not included)...[facility] HospitalComment on above:Result Comment: Electronically Signed By: Josh MILLER MD\.br\Date and Time Signed: 09/17/24 11:13 EST\.br\Electronically Co-Signed By: Zora North\.br\Date and Time Co-Signed: 09/17/2411:10 EST Clinical Note 09-17-2024 Note Date & CxdmMdbsCznkpanr60-41-5531 NotePatient Education Oncology Prostate Cancer Screening Prostate cancer screening is testing that is done to check for the presence of prostate cancer in men. The prostate gland is a walnut-sized gland that is located below the bladder and in front of therectum in males. The function of the prostate is to add fluid to semen during ejaculation. Prostatecancer is one of the most common types [...] is a blood test called the prostate-specific antigen(PSA) test. PSA is a protein that is [...] prostate gland for testing (biopsy). This is theonly way to know for certain if you [...] Where to find more information ??? The [place] Cancer Society: www.cancer.org ??? [place] Urological Association: www.auanet.org Contact a health care [...] men. The prostate gland (more content not included)...[facility] Evaluation + Plan note Note Date & TypeNoteFacilityEvaluation + Plan note Future Appointments Appointment Date:07/01/2025 09:30:00 AM Scheduled Provider:Josh MILLER MD Location[facility] Appointment Type:URO Office Visit Diagnostic Tests Pending * PSA Total 05/30/25 [facility] Hospital course Narrative Note Date & TypeNoteFacilityHospital course Narrative No data available for this section [facility] Progress note Note Date & TypeNoteFacilityProgress note No data available for this section [facility] Summary Purpose Family History No Family History Records Found Advance Directives No Advanced Directives Records Found Additional Source Comments Patient Care team prachi n (unrecognized section and content) Personnel Name: MARCELA WILKINS CNP Address: Address: [address] [place] [address]- (unrecognized sect ion and content) No Status Records Found INFORMATION SOURCE (unrecogn ized section and content) DATE CREATED AUTHOR 07/24/2025 [facility] FOR RECORDS PERTAINING TO PATIENTS WHO ARE [...] BE BASED ON THE PRIMARY CLINICAL RECORDS. [employer]. provides no warranty or guarantee of the accuracy or completeness of information in this document.
--- NOTE | 2025-07-25 09:08 | CT_ITS ---
The [address] [address] Patient Name: TIFFANY BRENNAN MRN: [id number] date: 1960 Sex: M Assigned Patient Location: LAB Current Patient Location: LAB Accession/Order Number: [id number] Exam Date: 07/25/2025 09:45 Report Date: 07/25/2025 10:43 At the request of: GILBERTO MILLER MD Procedure: CT abdomen pelvis wo/w con CT ABDOMEN AND PELVIS WITHOUT AND WITH INTRAVENOUS CONTRAST COMPARISON: 07/16/2024 CLINICAL DATA: Follow-up right renal cyst. Spiral images were obtained through the abdomen and pelvis before and after intravenous administration of 100 mL of Omnipaque 300. This CT exam was performed using one or more following dose reduction techniques: Automated exposure control, adjustment of the mA and/or kV according to patient size, or use of iterative reconstruction technique. Limited cuts through the lung bases show atelectasis and/or scarring. The kidneys are within normal limits for size, position and contour. Precontrast, no renal, ureteral or bladder stones are identified. Following contrast administration, the renal nephrograms are symmetric. There are multiple bilateral nonenhancing renal hypodensities compatible with cysts. The largest at the mid to lower pole on the right measures 13.6 cm in greatest dimension. Smaller linear calcification is again seen laterally. The largest cyst on the left is also toward the lower pole measuring 12.1 cm in size. No hydronephrosis is noted. A calcified gallstone is again noted. Fatty infiltration of the liver is seen. The spleen, pancreas and adrenal glands show no acute findings. The abdominal aorta is normal caliber. There is minimal atherosclerotic disease. There are a few small lymph nodes. No ascites is present. No dilated small bowel loops are seen. There is mild stool along the colon. There are a few left-sided diverticula. Levoscoliotic curvature and degenerative changes are visualized at the spine. Images through the pelvis show no appendiceal inflammation. There are normal caliber small bowel loops. There is mild to moderate distal colonic stool. No additional diverticular disease is seen. There is a tiny umbilical hernia containing fat. The prostate is enlarged and there is mass effect at the bladder trigone. The urinary bladder wall is top normal in thickness for the degree of distention. No ascites is seen. There are mildly patulous inguinal rings containing fat, larger on the left. CT/CT abdomen pelvis wo/w con IMPRESSION: FATTY LIVER. CHOLELITHIASIS. SIMILAR BILATERAL RENAL CYSTS INCLUDING ONE WITH ASSOCIATED CALCIFICATION ON THE RIGHT. NO BOWEL OR URINARY TRACT OBSTRUCTION. MINIMAL DIVERTICULOSIS. PROSTATE HYPERTROPHY. Impression dictated by: Kya Fulton M.D. 07/25/2025 10:43 AM Dictation Location: [place] [address] Electronically authenticated by: [id number] Y Date: 07/25/2025 10:43
[2025-07-25 09:11] LABS: Estimated GFR (African America >60 (>=60 mL/min/1.73m^2); Estimated GFR (Non-African Ame >60 (>=60 mL/min/1.73m^2)
[2025-07-25 11:05] LABS: Prostate Specific Antigen Dx 3.65 ng/mL (<=4.00)
== END 2025-07-25 08:52 | disposition home or self-care (01) ==
LOC: LAB 08:52
PROVIDERS: PCP Nurse Practitioner Family; Visit Provider Urology
DX: N28.1 Cyst of kidney, acquired (principal); Z12.5 Encounter for screening for malignant neoplasm of prostate; K76.0 Fatty (change of) liver, not elsewhere classified; K80.20 Calculus of gallbladder without cholecystitis without obstruction
CPT/HCPCS: 36415; 74178; 82565; 84153; Q9967